=== PATIENT | female | born 1965 | race Caucasian/White ===

== ENCOUNTER → 2018-02-06 | Outpatient (CLI) | payer BC | END | disposition home or self-care (01) | LOC: EEG 11:07 | DX: G40.909 Epilepsy, unspecified, not intractable, without status epilepticus (principal) | CPT/HCPCS: 95819 ==

== ENCOUNTER 2018-03-16 05:45 | Day surgery (SDC) | payer BC ==
[2018-03-16] MEDS ORDERED: LIDOCAINE 1% (MDV) 20 ML INJ (07:57)
== END 2018-03-16 09:26 | disposition home or self-care (01) ==
LOC: SDS 05:45
DX: R55 Syncope and collapse (principal); I10 Essential (primary) hypertension; E78.5 Hyperlipidemia, unspecified
CPT/HCPCS: 33282